=== PATIENT | male | born 1955 | race Caucasian/White ===

== ENCOUNTER → 2023-10-26 07:12 | Outpatient (REF) | payer BC, SELFPAY | LOC: DHCBC HW 07:12 | PROVIDERS: ATTENDING PHYSICIAN Internal Medicine Cardiovascular Disease; FAMILY PHYSICIAN Family Medicine | DX: Z01.810 Encounter for preprocedural cardiovascular examination (principal); I48.0 Paroxysmal atrial fibrillation; I10 Essential (primary) hypertension; I42.8 Other cardiomyopathies | CPT/HCPCS: 93306 ==